=== PATIENT | female | born 1985 | race Two or more races ===

== ENCOUNTER → 2025-03-14 | Outpatient (CLI) | payer MEDICAID, SELFPAY ==
--- NOTE | 2025-03-14 08:30 | XR_ITS ---
Examination: Screening digital mammography, bilateral Computer aided detection 3-D breast Tomosynthesis, bilateral Date and time of exam: March 14, 2025 0842 hours Indication: Screening Technique: Nonmagnified MLO, CC views of the breasts to been obtained, reconstructed from 3-D Tomosynthesis images. R2 computer aided detection program utilized for evaluation of suspicious masses and/or abnormal calcifications. 3-D Tomosynthesis images obtained. Findings: The breasts are heterogeneously dense, which may obscure small masses Benign calcifications. No interval suspicious masses Impression: BI-RADS category II: Benign Findings. Recommend 1 year follow-up mammogram.
== END | disposition home or self-care (01) ==
PROVIDERS: PCP Physician Assistant; Referring Provider Nurse Practitioner Primary Care; Visit Provider Nurse Practitioner Primary Care
DX: Z12.31 Encounter for screening mammogram for malignant neoplasm of breast (principal); R92.323 Mammographic fibroglandular density, bilateral breasts; R92.1 Mammographic calcification found on diagnostic imaging of breast
CPT/HCPCS: 77063; 77067

== ENCOUNTER 2025-05-12 10:47 | Emergency (ER) | payer MEDICAID, SELFPAY ==
[2025-05-12 10:58] VITALS: BP 138/80; PULSE 78; RESP 16; TEMP 37.1; O2SAT 95
--- NOTE | 2025-05-12 11:06 | XR_ITS ---
Examination: Fingers, right hand first digit 3 views Technique: AP, oblique, lateral views right hand first digit. Exam date and time: May 12, 2025 1116 hrs. Indications: Injury to the hand with first digit pain today Findings: No acute fracture. No dislocation. No foreign body Impression: No acute fracture
[2025-05-12] MEDS: LIDOCAINE HCL 1% 20 ML VIAL INFL (11:11)
--- NOTE | 2025-05-12 12:08 | PD.EDHAND ---
Upper Extremity Injury RME/HPI General Chief Complaint: Hand/Wrist Problems Stated Complaint: R) THUMB CAUGHT IN DOOR OF CAR 1 WEEKS AGO Time Seen by Provider: 05/12/25 10:51 Arrival date/time: 05/12/25 10:47 39-year-old female presents to the emergency department for complaints of right thumb pain patient reports that approxi-1 week ago her thumb got caught in the car door. Limitations: no limitations Related Data Home Medications ?Medication ?Instructions ?Recorded ?Confirmed ibuprofen 800 mg tablet 800 mg PO Q6H PRN Pain 09/15/20 09/16/20 norgestrel 0.075 mg tablet 0.075 mcg PO QDAY 09/16/20 09/16/20 Previous Rx's ?Medication ?Instructions ?Recorded docusate sodium 100 mg capsule 100 mg PO BID #40 caps 09/16/20 (Colace) hydrocodone 5 mg-acetaminophen 325 1 tab PO Q6H PRN pain #20 tabs 09/16/20 mg tablet (Warwick) cephalexin 500 mg capsule 500 mg PO BID 7 days #14 caps 05/12/25 ibuprofen 600 mg tablet 600 mg PO Q6H #30 tabs 05/12/25 Allergies Allergy/AdvReac Type Severity Reaction Status Date / Time No Known Allergies Allergy Verified 05/12/25 10:53 Review of Systems Review of Systems Systems Reviewed: All systems reviewed, normal except as documented Constitutional Constitutional: Reports system reviewed and no additional complaints, except as documented, Denies fever(s) and Denies headache(s) Eyes Eyes: Reports system reviewed and no additional complaints, except as documented and Denies blurry vision ENT Ears, Nose, Mouth, and Throat: Reports system reviewed and no additional complaints, except as documented, Denies headache(s), Denies nasal congestion and Denies nasal discharge Cardiovascular Cardiovascular: Reports system reviewed and no additional complaints, except as documented, Denies chest pain and Denies dyspnea Respiratory Respiratory: Reports system reviewed and no additional complaints, except as documented, Denies chest congestion, Denies cough and Denies dyspnea Gastrointestinal Gastrointestinal: Reports system reviewed and no additional complaints, except as documented and Denies abdominal pain Integumentary/Breasts Skin/Breast: Reports system reviewed and no additional complaints, except as documented, Denies rash and Reports other (Right thumb paronychia) Neurologic Neurologic: Reports system reviewed and no additional complaints, except as documented, Reports as per HPI and Denies headache(s) Past Medical History Past Medical History NEUROLOGIC: Negative Neurological Disorders CARDIAC: Negative Cardiac Disorders ED Exam General Limitations: Present no limitations General appearance: Present alert and in no apparent distress Head Head exam: Present atraumatic Eye Eye exam: Present normal appearance, PERRL and EOMI ENT ENT exam: Present normal exam, normal oropharynx and mucous membranes moist Neck Neck exam: Present normal inspection, full ROM and trachea midline Chest Chest inspection: Present normal inspection and symmetric chest wall rise Respiratory Respiratory exam: Present normal lung sounds bilaterally Cardiovascular Cardiovascular exam: Present regular rate, normal rhythm and normal heart sounds Abdominal Exam Abdominal exam: Present soft and normal bowel sounds Extremities Exam Extremities exam: Present full ROM, tenderness, normal capillary refill and joint swelling (Right thumb paronychia) Back Exam Back exam: Present normal inspection and full ROM Neurological Exam Neurological exam: Present alert, oriented X3 and CN II-XII intact Psychiatric Psychiatric exam: Present normal affect and normal mood Skin Skin exam: Present warm, dry and other (Right thumb paronychia) Course Quality Measures none Orders Category Date Time Status Wound Care NOW Care 05/12/25 11:06 Completed XR finger RT min 2V Stat Exams 05/12/25 11:06 Completed Lidocaine 1% 20 ml [Xylocaine 1% 20 ML] Med 05/12/25 11:06 Discontinued 20 ml INFL X1 ONE Vital Signs Vital signs: Vital Signs Temperature 98.7 F 05/12/25 10:58 Pulse Rate 78 05/12/25 10:58 Respiratory Rate 16 05/12/25 10:58 Blood Pressure 138/80 H 05/12/25 10:58 Pulse Oximetry (%) 95 05/12/25 10:58 Oxygen Delivery Method Room Air 05/12/25 10:58 O2 saturation 95% room air wnl Procedures -ED Abscess I/D Site: hand (Paronychia nail trephination right thumb) Side (if applicable): right Local Anesthetic: lidocaine 1% Amount of anesthesia used (mL): 6 Technique: needle aspiration Amount of fluid expressed (mL): 2 Irrigation: Yes Packing used?: none Complications: pain Extremity Injury MDM Narrative MDM Narrative:: 39-year-old female presents to the emergency department for complaints of right thumb pain patient reports that approxi-1 week ago her thumb got caught in the car door. On exam patient well-appearing patient does not appear ill or toxic no acute distress On exam patient has what appears to be a paronychia to the right thumb paronychia is drained Nail trephination performed. Patient tolerated well X-ray of the right hand obtained no acute fracture dislocation noted Patient be discharged on a course of antibiotics Patient discharged home in no distress to follow-up with primary care doctor in the next 24 to 48 hours and for any worsening symptoms to return to the ER immediately Patient data External records reviewed:: [facility] previous records Clinical information provided by:: patient Social determinants that could affect healthcare access:: none Patient has the following chronic illnesses:: None How is presenting disease/condition affected by chronic disease/condition?: no chronic disease Evaluation data The following diagnostics were reviewed and interpreted by me:: radiology exam(s) Lab and/or radiology exams considered but not ordered:: Radiology obtain Interpretation Summary: Reviewed by me Medications / Prescriptions Medications or Prescriptions considered but not ordered:: Given Medication administrations:: Medication Administration History Discontinued Medications Lidocaine HCl (Lidocaine Hcl 1% 20 Ml Vial) 20 ml INFL X1 ONE Stop: 05/12/25 11:07 Last Admin: 05/12/25 11:11 Dose: 20 ml Documented By: BEN Comments: USED BY PROVIDER Given Consultations Consultation(s) initiated? (list below): No Diagnosis Upper Extremity Injury Differential Diagnosis: other (Finger sprain, finger fracture, paronychia, cellulitis) Most likely diagnosis given after review of the tests above:: Paronychia Admission Indicated Admission indicated?: not indicated Admission Request Was there a request for admission?: No Disposition Plan Disposition Plan: Discharge Discharge Attestation Discharge Attestation: The patient and all family members were given an opportunity to ask questions and understood the discharge instructions. Discharge instructions specifically effects, indications for sooner follow up or return to the emergency department, and the expected course of current diagnosis. Patient condition: Stable Discharge Plan Plan Patient Disposition: HOME (Self Care) Discharge Disposition comment: Stable Prescriptions/Referrals Prescriptions/Med Rec: New cephalexin 500 mg capsule 500 mg PO BID 7 Days Qty: 14 0RF ibuprofen 600 mg tablet 600 mg PO Q6H Qty: 30 0RF No Action ibuprofen 800 mg Tablet 800 mg PO Q6H PRN (Reason: Pain) norgestrel 0.075 mg Tablet 0.075 mcg PO QDAY hydrocodone-acetaminophen [[place]wick] 5-325 mg tablet 1 tab PO Q6H MDD 4 PRN (Reason: pain) Qty: 20 0RF docusate sodium [Colace] 100 mg capsule 100 mg PO BID Qty: 40 0RF Referrals: Anusha Campbell FNP ([email or web address]) [Primary Care Provider] - 05/13/25 Problem List Clinical Impression: Acute paronychia of finger of right hand Patient/Caregiver Discharge Instructions Education Materials: ED Paronychia of the Finger or Toe Additional Instructions: Please follow up with your primary care doctor in the next 24-48hrs for any worsening symptoms return here immediately Print Language: [place] Stand Alone Forms: Layla Award Info., Patient Portal Info Letter CABRERA/NALINI Supervising Physician CABRERA/NALINI Supervising Physician: Dr rosas
== END 2025-05-12 12:10 | disposition home or self-care (01) ==
PROVIDERS: Emergency Provider Orthopaedic Surgery Adult Reconstructive Orthopaedic Surgery; PCP Nurse Practitioner Primary Care; Referring Provider Family Medicine
DX: L03.011 Cellulitis of right finger (principal); W23.2XXA Caught, crushed, jammed or pinched between a moving and stationary object, initial encounter
CPT/HCPCS: 26010; 73140; 99283; J3490